=== PATIENT | female | born 1985 | race Caucasian/White ===

== ENCOUNTER 2018-04-14 13:50 | Emergency (ER) | payer OTHER ==
[~2018-04-14] VITALS: Ht 152.4 cm; Wt 81.7 kg
[~2018-04-14 13:50] MED LIST: ADVAIR 250-501 EACH IH; ALBUTEROL INHAL17 GM IH; ALBUTEROL2.5 MG/0.5 INH; BUPROPION; CLEOCIN HCL150 MG PO; CLEOCIN HCL300 MG PO; FLEXERIL PO; FLINTSTONES +1 EACH PO; FLINTSTONES T100 MCG; HYDROCODON-ACE1 EAC7 PO; HYDROCORTISONE30 G9 TOP; IBUPROFEN 600600 M1 PO; IBUPROFEN 800800 MG PO; MEDROL DOSPAK21 TA1 PO; MOTION RELIEF25 MG PO; NAPROSYN500 MG PO; NOHOMEMEDICATIONS; NORCO 5-325 TA1 EACH; NORCO 5-325 TA1 EACH PO; NORCO 7.5-3251 EACH; NORFLEX100 MG PO; PAXIL20 MG PO; PHENTERMINE H37.5 MG PO; PHENTERMINE HCL15 MG; PREDNISONE 10 M10 M1 PO; PREDNISONE 20 M20 MG PO; PRENATAL; PROMETHAZINE-C120 ML PO; PROVENTIL HFA6.7 G1 INH; SILVADENE20 GM TP; TRAMADOL 50 MG50 MG PO; ULTRAM 50MG TAB50 MG PO; WELLBUTRIN XL150 M1 PO; XANAX 0.25 MG0.25 MG PO; ZPAK PO
[2018-04-14] MEDS ORDERED: ACCUNEB SO1.25 MG/1 INH (14:34)
[2018-04-14] MEDS ORDERED: TESSALON PERLE100 MG PO (14:34)
[2018-04-14 14:50] VITALS: BP 121/79
== END 2018-04-14 14:51 | disposition home or self-care (01) ==
LOC: M.ERS 13:50
DX: R05 Cough (principal); J45.909 Unspecified asthma, uncomplicated; Z88.0 Allergy status to penicillin

== ENCOUNTER 2018-10-29 17:43 | Emergency (ER) | payer OTHER ==
[~2018-10-29] VITALS: Ht 152.4 cm; Wt 81.7 kg
[~2018-10-29 17:43] MED LIST changes: +ACCUNEB SO1.25 MG/1 INH; +TESSALON PERLE100 MG PO
[2018-10-29 17:57] VITALS: BP 134/82
[2018-10-29] MEDS ORDERED: MEDROL DOSPAK21 TA1 PO (18:05)
[2018-10-29] MEDS ORDERED: IPRAT-ALBUT 0.5-3 ML INH (18:34)
== END 2018-10-29 18:33 | disposition home or self-care (01) ==
LOC: M.ERS 17:43
DX: J45.901 Unspecified asthma with (acute) exacerbation (principal); Z88.0 Allergy status to penicillin

== ENCOUNTER 2019-07-14 16:11 | Emergency (ER) | payer OTHER ==
[~2019-07-14] VITALS: Ht 170.2 cm; Wt 81.7 kg
[~2019-07-14 16:11] MED LIST changes: +IPRAT-ALBUT 0.5-3 ML INH
[2019-07-14 16:42] LABS: INFLUENZA A ANTIGEN Negative (Negative); INFLUENZA B ANTIGEN Negative (Negative)
[2019-07-14] MEDS ORDERED: AZITHROMYCIN 2250 MG PO (16:50)
[2019-07-14 17:15] VITALS: BP 125/77
== END 2019-07-14 17:16 | disposition home or self-care (01) ==
LOC: M.ERS 16:11
PROVIDERS: Physician Assistant
DX: J02.0 Streptococcal pharyngitis (principal); J45.909 Unspecified asthma, uncomplicated; Z88.0 Allergy status to penicillin